=== PATIENT | female | born 1980 | race Caucasian/White ===

== ENCOUNTER → 2017-07-26 | Outpatient (CLI) | payer OTHER ==
[~2017-07-26] MED LIST: ACET-1935 PO; HYDR-4240 PO; IBU800 PO; IBUP-2708 PO; LOR5/325 PO; LOR7.5/325 PO; MET10 PO; MULT-885 PO; PER PO; PREN-85 PO
--- NOTE | 2017-07-27 11:44 | RADIOLOGY IMAGING REPORT ---
[place] [facility] [place] NAME: BASSEM FIGUEROA : [id number] MR: [id number] V: [id number] EXAM DATE: [id number] ORDERING PHYSICIAN: GRACIELA BLAS TECHNOLOGIST: Smitha Moctezuma PROCEDURE:BILATERAL DIGITAL SCREENING MAMMOGRAM WITH CAD ASSISTED INTERPRETATION & 3D BREAST TOMOSYNTHYSIS COMPARISON:None. INDICATIONS:SCREENING FINDINGS: Heterogeneous fibroglandular tissue is seen throughout the breasts. Two focal areas of increased density are seen in the upper portion of the left breast on the left MLO view for which spot compression views recommended. There is an area of architectural distortion in the left retroareolar region on the left CC view in Zone 1 & several vague areas of increased density in Zone 2, junction Zones 1 & 2 on the left CC view for which spot compression views recommended. DIAGNOSTIC CATEGORY 0--INCOMPLETE: NEED ADDITIONAL IMAGING EVALUATION. RECOMMENDATIONS: ADDITIONAL MAMMOGRAPHIC VIEWS REQUIRED: LEFT BREAST. IMPRESSION: BIRADS 0: Incomplete - need additional imaging evaluation 1. Additional views of the left breast recommended as describes. Dictated by: Katy Gross M.D. on 07/26/2017 at 16:51 Transcribed by: [email or web address] on 07/27/2017 at 10:44 Approved by: Katy Gross M.D. on 07/27/2017 at 11:43 [facility]
== END ==
LOC: MAMO 07:09
PROVIDERS: ATTEND Obstetrics & Gynecology
DX: Z12.31 Encounter for screening mammogram for malignant neoplasm of breast (principal); R92.8 Other abnormal and inconclusive findings on diagnostic imaging of breast
CPT/HCPCS: 77063; 77067

== ENCOUNTER → 2017-08-07 | Outpatient (CLI) | payer OTHER ==
--- NOTE | 2017-08-21 09:43 | RADIOLOGY IMAGING REPORT ---
FACILITY: [facility] - [place] PATIENT NAME: BASSEM FIGUEROA : [id number] MR: [id number] V: [id number] EXAM DATE: ORDERING PHYSICIAN: GRACIELA BLAS TECHNOLOGIST: Smitha Moctezuma PROCEDURE:LEFT DIGITAL DIAGNOSTIC MAMMOGRAM WITH CAD ASSISTED INTERPRETATION AND 3D BREAST TOMOSYNTHESIS. COMPARISON:Prior mammograms dated 07/26/17. INDICATIONS:FURTHER EVALUATION FINDINGS: The patient returns for spot compression views in the left CC and MLO projection in addition to medial lateral view of the left breast and a rolled left CC view. The two nodular areas in the upper portion of the left breast on the prior left MLO view appear compressible and apparently represented summation shadows. The area of increased density posterior to the mid-nipple line on the prior left CC view dissipated on the rolled views and apparently represented summation shadows. There is no demonstration of malignant appearing mass or calcification in the left breast. DIAGNOSTIC CATEGORY 2--BENIGN FINDING. RECOMMENDATIONS: ROUTINE MAMMOGRAM AND CLINICAL EVALUATION. IMPRESSION: BI-RADS 2: No significant abnormality of the left breast is seen. Images were reviewed with R2CAD and 3D breast tomosynthesis. Dictated by: Katy Gross M.D. on 08/07/2017 at 14:50 Transcribed by: AZEB on 08/08/2017 at 15:55 Approved by: Katy Gross M.D. on 08/21/2017 at 9:42 [facility]
== END ==
LOC: MAMO 01:37
PROVIDERS: ATTEND Obstetrics & Gynecology
DX: R92.2 Inconclusive mammogram (principal)
CPT/HCPCS: 77065